=== PATIENT | female | born 1955 | race Caucasian/White ===

== ENCOUNTER 2016-10-23 00:40 | Observation (INO) | payer OTHER ==
[~2016-10-23] VITALS: Ht 165.1 cm; Wt 132.7 kg
[~2016-10-23 00:40] MED LIST: ANAPROX DS550 M1 PO; VICODIN,LORT1 TABLET PO
[2016-10-23 01:09] LABS: BASOPHIL COUNT 0.1 K/uL (0-0.1); EOSINOPHIL COUNT 0.7 K/uL (0-0.3); HEMATOCRIT 46.3 % (36.0-46.0); IMMATURE GRANULOCYTE (%) 0.6 % (0.0-0.7); IMMATURE GRANULOCYTE COUNT 0.1 K/uL; INSTRUMENT ABS NEUTROPHIL CT 8.3 K/uL; LYMPHOCYTE COUNT 3.8 K/uL (1.0-2.8); MCH 29.8 PG (29.0-34.0); MCHC 32.6 G/DL (30.0-36.0); MCV 91.3 FL (83-99); MEAN PLAT.VOLUME 10.3 uM^3 (9.5-12.4); MONOCYTE (%) 8.4 % (3-12); MONOCYTE COUNT 1.2 K/uL (0-0.8); NEUTROPHIL (%) 58.6 % (45-76); NEUTROPHIL COUNT 8.3 K/uL (1.8-6.4); PLATELET COUNT 282 K/uL (156-360); RBC DIS.WIDTH-CV 14.5 % (11.8-14.6); RBC DIS.WIDTH-SD 48.6 % (39-53); RED BLOOD COUNT 5.07 M/uL (3.80-5.20); WHITE BLOOD COUNT 14.2 K/uL (4.1-10.2)
[2016-10-23 01:17] LABS: AMYLASE 37 IU/L (1-118); CHLORIDE 103 mEq/L (99-109)
[2016-10-23 01:18] LABS: SODIUM 140 mEq/L (136-147)
[2016-10-23 01:19] LABS: GLUCOSE 93 mg/dL (70-99); PTT 29.7 (25-32)
[2016-10-23 01:19] LABS: ADD MIUA? NO; BILIRUBIN NEGATIVE; BLOOD NEGATIVE; COLOR STRAW ((YELLOW)); GLUCOSE (STRIP) NEGATIVE; KETONES NEGATIVE; LEUKOCYTES NEGATIVE; NITRITE NEGATIVE; PROTEIN (STRIP) NEGATIVE; SPECIFIC GRAVITY 1.014 (1.000-1.030); UCUL ADDED? NO; UROBILINOGEN 0.2 MG/DL (0.2-1.0)
[2016-10-23 01:21] LABS: ANION GAP 12 MEQ/L (2-14)
[2016-10-23 01:22] LABS: SERUM ETHYL ALCOHOL < 10 mg/dL
[2016-10-23 01:23] LABS: GFR ESTIMATE (CALCULATED) > 59 mL/min/
[2016-10-23 01:24] LABS: UREA NITROGEN (BUN) 24 mg/dL (9-23)
[2016-10-23 01:26] LABS: LIPASE 51 U/L (1.0-51.0)
[2016-10-23 01:28] LABS: AMPHETAMINE NEGATIVE (500 ng/mL); BARBITURATES NEGATIVE (200 ng/mL); BENZODIAZEPINES NEGATIVE (150 ng/mL); COCAINE NEGATIVE (150 ng/mL); INTERNAL CONTROLS VALID? YES; METHADONE NEGATIVE (200 ng/mL); METHAMPHETAMINE NEGATIVE (500 ng/mL); OPIATES (MORPHINE) NEGATIVE (100 ng/mL); OXYCODONE NEGATIVE (100 ng/mL); PHENCYCLIDINE NEGATIVE (25 ng/mL); PROPOXYPHENE NEGATIVE (300 ng/mL); THC CANNABINOIDS NEGATIVE (50 ng/mL); TRICYCLIC ANTIDEPRESSANTS NEGATIVE (300 ng/mL)
[2016-10-23 01:29] LABS: TROP-I INTERPRETATION NEGATIVE; TROPONIN-I < 0.01 ng/mL (0.0-0.30)
[2016-10-23] MEDS ORDERED: TRAMADOL HCL50 MG PO (02:17)
[2016-10-23] MEDS ORDERED: ASPIR 8181 M1 PO (02:17)
[2016-10-23] MEDS ORDERED: TYLENOL ARTHRI650 MG PO (02:18)
[2016-10-23] MEDS ORDERED: LOSARTAN POTASS50 MG PO (02:18)
[2016-10-23] MEDS ORDERED: LOPRESSOR100 M1 PO (02:19)
[2016-10-23] MEDS ORDERED: DETROL2 MG PO (02:19)
[2016-10-23 05:03] LABS: ALKALINE PHOSPHATASE 65 IU/L (3-129); HDL CHOLESTEROL 40 MG/DL (Desirable>=50); LDL CHOLESTEROL 61 mg/dL (Desirable<100); NON-HDL CHOLESTEROL 131 mg/dL (Desirable<160); TOTAL BILIRUBIN 0.2 MG/DL (0.0-1.0); TOTAL CHOLESTEROL 171 mg/dL (Desirable<200); TRIGLYCERIDES 348 MG/DL (Normal: <150)
[2016-10-23 05:08] VITALS: BP 133/63
[2016-10-23 05:32] LABS: MCH 30.1 PG (29.0-34.0); MCHC 32.8 G/DL (30.0-36.0); MCV 91.9 FL (83-99); MEAN PLAT.VOLUME 10.2 uM^3 (9.5-12.4); PLATELET COUNT 239 K/uL (156-360); RBC DIS.WIDTH-CV 14.6 % (11.8-14.6); RBC DIS.WIDTH-SD 48.8 % (39-53); RED BLOOD COUNT 4.68 M/uL (3.80-5.20); WHITE BLOOD COUNT 12.4 K/uL (4.1-10.2)
[2016-10-23 07:26] LABS: Estimated Average Glucose 128 mg/dL (70-123); HEMOGLOBIN A1c (GLYCOHEMOGLOB) 6.1 % HGB (Below 5.7)
[2016-10-23 08:30] VITALS: BP 119/57
[2016-10-23 12:08] VITALS: BP 126/58
[2016-10-23] MEDS ORDERED: AZITHROMYCIN500 M1 PO (14:28)
[2016-10-23] MEDS ORDERED: VENTOLIN HFA18 GM IH (14:28)
[2016-10-23] MEDS ORDERED: ADVAIR HFA120 INHALA IH (14:28)
[2016-10-23] MEDS ORDERED: NICOTINE PATCH1 EAC2 TD (14:28)
[2016-10-23] MEDS ORDERED: ASPIRIN325 MG PO (14:28)
[2016-10-23] MEDS ORDERED: SPIRIVA RESPIMAT4 GM IH (14:28)
[2016-10-23] MEDS ORDERED: PRAVASTATIN SOD40 MG PO (14:28)
[2016-10-23 15:56] VITALS: BP 128/60
[2016-10-23 19:00] VITALS: BP 147/68
== END 2016-10-23 22:30 | disposition home or self-care (01) ==
LOC: EME 00:40 → EDOF 03:57 → 5WEST 04:48
PROVIDERS: Emergency Medicine; Nurse Practitioner Adult Health
DX: I63.9 Cerebral infarction, unspecified (principal); R20.0 Anesthesia of skin; I10 Essential (primary) hypertension; G47.33 Obstructive sleep apnea (adult) (pediatric); M19.90 Unspecified osteoarthritis, unspecified site; E66.01 Morbid (severe) obesity due to excess calories; E78.1 Pure hyperglyceridemia; F17.200 Nicotine dependence, unspecified, uncomplicated; Z68.42 Body mass index [BMI] 45.0-49.9, adult; Z96.653 Presence of artificial knee joint, bilateral; Z91.19 Patient's noncompliance with other medical treatment and regimen
CPT/HCPCS: 70450; 70551; 71010; 80048; 80061; 80076; 81003; 82150; 83036; 83690; 84484; 85025; 85027; 85610; 85730; 86900; 86901; 93005; 93880; 94640; 94640 76; 99202; 99281; 99285; G0378; G0480; J1650

== ENCOUNTER 2017-06-13 06:52 | Day surgery (SDC) | payer OTHER ==
[~2017-06-13] VITALS: Ht 165.1 cm; Wt 133.9 kg
[~2017-06-13 06:52] MED LIST changes: +ADVAIR HFA120 INHALA IH; +ASPIR 8181 M1 PO; +ASPIRIN325 MG PO; +AZITHROMYCIN500 M1 PO; +DETROL2 MG PO; +HYZAAR 100-11 TABLET PO; +LOPRESSOR50 MG PO; +LOSARTAN POTASS50 MG PO; +NICOTINE PATCH1 EAC2 TD; +OXYBUTYNIN CHLOR5 M1 PO; +PRAVACHOL40 MG PO; +PRAVASTATIN SOD40 MG PO; +SPIRIVA RESPIMAT4 GM IH; +STIOLTO RESPIMAT4 GM IH; +TRAMADOL HCL50 MG PO; +TYLENOL ARTHRI650 MG PO; +VENTOLIN HFA18 GM IH; +WELLBUTRIN SR100 MG PO
[2017-06-13 07:21] VITALS: BP 122/58
[2017-06-13] MEDS ORDERED: IBUPROFEN800 MG PO (07:36)
[2017-06-13] MEDS ORDERED: ENDOCET 5-3251 EACH PO (07:36)
[2017-06-13 10:33] VITALS: BP 145/76
[2017-06-13 11:28] VITALS: BP 176/82
[2017-06-13 13:10] VITALS: BP 136/83
== END 2017-06-13 13:30 | disposition home or self-care (01) ==
LOC: SDC 06:52
DX: N84.0 Polyp of corpus uteri (principal); N95.0 Postmenopausal bleeding; I10 Essential (primary) hypertension; J45.909 Unspecified asthma, uncomplicated; Z86.73 Personal history of transient ischemic attack (TIA), and cerebral infarction without residual deficits; Z87.891 Personal history of nicotine dependence; Z79.82 Long term (current) use of aspirin
CPT/HCPCS: 88305; 94640; J0330; J1100; J1170; J2250; J2405; J3010